=== PATIENT | female | born 1970 | race Caucasian/White ===

== ENCOUNTER 2016-12-10 13:32 | Emergency (ER) | payer OTHER ==
--- NOTE | ~2016-12-10 | CT2 ---
[facility] A Service of [facility] RADIOLOGY TEXT RESULTS PATIENT: CLEM CONWAY LOCATION: SED : [birth year] UNIT #: [id number] AGE: [address]: Brad Fitch MD SEX: F ORDER DR: [id number] [place] [address] [id number] MR#: [id number] Acc #: [id number] NAME: CLEM CONWAY : 1970 SEX: F STUDY DATE/TIME: 12/10/2016 15:13 UNIT: SED ROOM: STUDY DESCRIPTION: CT Abd and Pelv W Cont Attending Physician: Brad Fitch M.D. Ordering Physician: Brad Fitch M.D. Primary Care Physician: Francisco Mallory M.D. MEDICAL IMAGING REPORT This report is preliminary unless electronic signature is present. EXAM Abdomen and pelvis CT, with contrast, 12/10/2016. INDICATIONS 46-year-old female with right lower quadrant abdominal pain and vomiting since 6:30 this morning. Nausea. History of hysterectomy and cholecystectomy. No history of malignancy. TECHNIQUE Contrast-enhanced abdomen and pelvis CT was performed. Comparison 06/05/09. This CT exam was performed with one or more of the following radiation dose reduction techniques: automatic exposure control, adjustment of mA and/or kV according to patient size, and iterative reconstruction. FINDINGS CT ABDOMEN: Included lung bases are clear. No effusion or pericardial effusion. Aorta demonstrates no aneurysm or dissection. Spleen, adrenal glands and pancreas are unremarkable. The gallbladder is surgically absent. Liver demonstrates equivocal mild fatty infiltration. Kidneys demonstrate no hydronephrosis or inflammatory change. Reactive-appearing upper abdominal lymph nodes and periportal nodes. CT PELVIS: Bladder demonstrates prolapse into the deep pelvis. Uterus surgically absent. There is no drainable fluid collection in the pelvis or adnexal mass. Bowel demonstrates no inflammatory change or obstruction. Appendix is normal. Inguinal canals are unremarkable. No suspicious bone lesion. [facility] A Service of [facility] RADIOLOGY TEXT RESULTS PATIENT: CLEM CONWAY LOCATION: SED : [birth year] UNIT #: [id number] AGE: [address]: Brad Fitch MD SEX: F ORDER DR: IMPRESSION 1. No clearly acute process in the abdomen or pelvis. The appendix is normal. No bowel obstruction, drainable fluid collection or focal area of inflammatory change. Appendix normal. 2. Surgical absence of the gallbladder. 3. Surgical absence of the uterus. Dictated by... Juventino Lind M.D. THIS IS AN ELECTRONICALLY VERIFIED REPORT Juventino Lind M.D. at 12/11/2016 8:24 AM [place]qu[place] TD: 12/10/2016 18:45 JOB #: [id number] MEDICAL IMAGING REPORT Page 1 of 1
[~2016-12-10 13:32] MED LIST: ACETAMINOPHEN PO; ACETAMINOPHEN650 M3 PO; ALBUTEROL17 GM INH; AMBIEN10 MG PO; AMLODIPINE BES2.5 MG PO; ASPIRIN PO; ASPIRIN325 M1 PO; ASPIRIN81 M1 PO; ASPIRINEC; ATIVAN PO; ATIVAN2 MG PO; BACLOFEN10 MG PO; BACTRIM DS TABL1 TA1 PO; BENADRYL PO; BUMEX PO; BUMEX2 MG PO; CELEBREX PO; CELEXA; CHANTIX PO; CLOPIDOGREL75 MG PO; COLACE PO; COMBIVENT INH14.7 GM INH; COREG; COREG PO; CYMBALTA PO; DARVOCET-N 1001 TAB; DARVOCET-N 1001 TAB PO; DESYREL300 MG PO; DIAZEPAM; DICLOFENAC SODI50 MG PO; DICYCLOMINE HCL20 MG PO; EFFEXOR XR PO; FLAGYL PO; FLEXERIL; FLEXERIL PO; FLEXERIL10 MG PO; FLOVENT HFA12 GM INH; GABAPENTIN600 MG PO; HCTZ; HCTZ PO; HYDROCODON-ACE1 EAC4 PO; HYDROCODON-ACE1 EAC5 PO; HYDROCODON-ACE1 EAC9 PO; HYDROCODONE-APA1 T30 PO; IBUPROFEN; IBUPROFEN800 MG PO; IMDUR-ER30 MG PO; IMITREX PO; INDOCIN SR75 MG; K-DUR20 ME1 PO; KCL PO; KEFLEX500 MG PO; KETOPROFEN PO; LASIX PO; LEVAQUIN PO; LIPITOR; LIPITOR PO; LISINOPRIL; LISINOPRIL PO; LISINOPRIL20 MG PO; LOPRESSOR; LOPRESSOR PO; LYRICA PO; MEDROL PO; MEDROL4 MG/DOSE- PO; METOPROLOL SUCC50 MG PO; MOBIC PO; MS CONTIN PO; NAPROXEN500 M1 PO; NEURONTIN; NEURONTIN PO; NEURONTIN300 MG PO; NEURONTIN600 MG PO; NICOTINE T1 PATCH .2 TOP; NITROGYLCERIN; NITROGYLCERIN SUBLINGUAL; NITROSTAT0.4 MG SL; NORVASC PO; PARAFON FORTE500 MG PO; PATIENT'S PHARMACY; PATIENT'S PHARMACY PO; PERCOCET5/325 PO; PHENERGAN PO; PHENERGAN PR; PLAVIX; PLAVIX PO; PREDNISONE PO; PREDNISONE5 M1 PO; PREDNISONE50 MG PO; PRILOSEC PO; REGLAN PO; ROBAXIN500 MG PO; SEROQUEL PO; SIMVASTATIN20 MG PO; THEOPHYLLIN PO; TOPROL XL PO; TRAZODONE; TRAZODONE PO; TRICOR PO; TYLENOL #3 PO; VICODIN 5/500 T1 TAB PO; VICODIN PO; ZANAFLEX PO; ZANAFLEX4 M1 PO; ZANTAC PO; ZITHROMAX PO; ZOCOR PO; ZOLOFT PO
[2016-12-10] MEDS ORDERED: NEURONTIN800 MG PO (13:37)
[2016-12-10] MEDS ORDERED: LISINOPRIL20 MG PO (13:37)
[2016-12-10 14:49] LABS: BASOPHIL# 0.1 X10e3 (0-0.3); BASOPHIL% 0.8 % (0-2.5); EOSINOPHIL# 0.2 X10e3 (0-0.7); EOSINOPHIL% 2.1 % (0.0-7.0); HEMATOCRIT 43.6 % (35.0-45.0); HEMOGLOBIN 14.8 gm/dL (12.0-16.0); LYMPHOCYTE# 2.6 X10e3 (1.0-3.5); LYMPHOCYTE% 25.2 % (17.0-45.0); MEAN CELL VOLUME 89.4 FL (83-96); MEAN CORPUSCULAR HEMOGLOBIN 30.2 PG (28-34); MEAN CORPUSCULAR HGB CONC 33.8 g/dL (30-36); MEAN PLATELET VOLUME 8.8 FL (6.5-11.5); MONOCYTE# 0.5 X10e3 (0-1.0); MONOCYTE% 4.7 % (3.0-12.0); NEUTROPHIL% 67.2 % (40-75); PLATELET COUNT 171 X10e3 (140-420); RED BLOOD COUNT 4.88 X10e (3.90-5.30); RED CELL DISTRIBUTION WIDTH 15.1 % (11.0-15.5); WHITE BLOOD COUNT 10.5 X10e3 (4.0-10.5)
[2016-12-10 14:53] LABS: URINE SOURCE CLEAN CATCH
[2016-12-10 14:55] LABS: URINE APPEARANCE CLEAR; URINE BILIRUBIN NEG (NEG); URINE BLOOD NEG (NEG); URINE COLOR YELLOW; URINE GLUCOSE NEG (NORM); URINE KETONE NEG (NEG); URINE LEUKOCYTE ESTERASE NEG (NEG); URINE NITRATE NEG (NEG); URINE PROTEIN NEG (NEG); URINE UROBILINOGEN 0.2 MG/DL (NORM)
[2016-12-10 15:00] LABS: DIFF IND NO; MICRO INDICATED? NO
[2016-12-10 15:09] LABS: ALBUMIN SERUM 3.9 g/dL (3.5-5.0); ALKALINE PHOSPHATASE 62 U/L (32-92); ALT (SGPT) 15 U/L (10-40); AMYLASE <7 U/L (0-46); AST (SGOT) 16 U/L (10-42); BILIRUBIN, DIRECT 0.1 mg/dL (0.0-0.2); BILIRUBIN,TOTAL 0.1 mg/dL (0.2-2.0); BLOOD UREA NITROGEN 10 mg/dL (9-23); BUN/CREATININE RATIO 16.66; CALCIUM SERUM 8.6 mg/dL (8.4-10.2); CARBON DIOXIDE 27 mmol/L (22-31); CHLORIDE 104 mmol/L (100-111); CREATININE SERUM 0.6 mg/dL (0.6-1.4); GLOM FILT RATE Estimated 110.1 mL/min (>60); GLUCOSE FASTING 100 mg/dL (70-110); LIPASE 25 U/L (22-51); POTASSIUM 3.8 mmol/L (3.5-5.1); PROTEIN TOTAL SERUM 7.5 g/dL (6.0-8.3); SODIUM 138 mmol/L (135-145)
== END 2016-12-10 16:28 | disposition home or self-care (01) ==
LOC: SED 13:32
PROVIDERS: Emergency Medicine
DX: K52.9 Noninfective gastroenteritis and colitis, unspecified (principal); I25.2 Old myocardial infarction; E78.5 Hyperlipidemia, unspecified; I10 Essential (primary) hypertension; J44.9 Chronic obstructive pulmonary disease, unspecified; E66.9 Obesity, unspecified; F17.210 Nicotine dependence, cigarettes, uncomplicated; Z79.899 Other long term (current) drug therapy; Z88.5 Allergy status to narcotic agent; Z88.1 Allergy status to other antibiotic agents; Z91.040 Latex allergy status
CPT/HCPCS: 36415; 74177; 80048; 80076; 81003; 82150; 83690; 85025; 96361; 96374; 96375; 96376; 99284; J1170; J2405; Q9967

== ENCOUNTER 2017-03-24 21:38 | Inpatient (IN) | payer OTHER ==
[~2017-03-24] VITALS: Ht 160 cm; Wt 115.5 kg
--- NOTE | ~2017-03-24 | CR127 ---
[facility] A Service [facility] RADIOLOGY TEXT RESULTS PATIENT: CLEM CONWAY LOCATION: [place] [address] : [birth year] UNIT #: [id number] AGE: [address]: Allyssa Shah MD SEX: F ORDER DR: [id number] [place] [id number] I MR#: [id number] Acc #: [id number] NAME: CLEM CONWAY : 1970 SEX: F STUDY DATE/TIME: 03/25/2017 1:25 UNIT: SEDOF ROOM: [facility] STUDY DESCRIPTION: CR Foot Complete Min 3 View Rt Attending Physician: Chung Matute M.D. Ordering Physician: Ofe Collins M.D. Primary Care Physician: Francisco Mallory M.D. MEDICAL IMAGING REPORT This report is preliminary unless electronic signature is present. EXAM Right foot series INDICATION Right foot redness and swelling for the past 2 days. PROCEDURE Three views of the right foot. COMPARISON None. FINDINGS Soft tissue thickening and soft tissue gas is seen lateral to the fifth metatarsophalangeal joint. No underlying aggressive appearing bone change. IMPRESSION 1. Focal soft tissue swelling and gas lateral to the fifth metatarsophalangeal joint. 2. No aggressive appearing bone change is seen to suggest osteomyelitis on plain film. Dictated by... Saul Sinclair M.D. THIS IS AN ELECTRONICALLY VERIFIED REPORT Saul Sinclair M.D. at 03/26/2017 9:55 PM EEClifton/domingo TD: 03/25/2017 10:26 JOB #: [id number] [facility] A Service [facility] RADIOLOGY TEXT RESULTS PATIENT: CLEM CONWAY LOCATION: [place] [address] : [birth year] UNIT #: [id number] AGE: [address]: Allyssa Shah MD SEX: F ORDER DR: MEDICAL IMAGING REPORT Page 1 of 1
--- NOTE | ~2017-03-24 | CO ---
Unit #: [id number] #: [id number] Patient: CLEM CONWAY [id number] [address] [place], [place] [address] [id number] I MR#: [id number] NAME: CLEM CONWAY ROOM: 461 Age: 46 Sex: F Admission Date: 03/25/2017 : 1970 Attending Physician: Allyssa Shah M.D. Primary Care Physician: Francisco Mallory M.D. Consultation Date: 03/25/2017 CONSULTATION REPORT BRIEF HISTORY The patient is a 46-year-old lady, who presents with a 1-week history of pain in her right foot. This is subsequently become red, swollen, and an area of blistering on the lateral aspect. She has had some subjective fevers. PAST MEDICAL HISTORY Congestive heart failure, cardiac dysfunction, hypertension, neuropathy, COPD. PAST SURGICAL HISTORY She has had a hysterectomy, cholecystectomy, multiple exploratory laparotomies, section, and cardiac stents. HOME MEDICATIONS Plavix, Flexeril, Celebrex, lisinopril. SOCIAL HISTORY No alcohol. Does smoke pack per day. FAMILY HISTORY Negative for GI malignancy. REVIEW OF SYSTEMS No cardiopulmonary complaints at this time. Else, 10 systems reviewed negative. PHYSICAL EXAMINATION GENERAL: She is awake and alert, but uncomfortable. Complaining of foot pain. VITAL SIGNS: Currently, afebrile. HEENT: Unremarkable. NECK: Supple. No JVD. Trachea midline. LUNGS: Clear to auscultation. Bilateral breath sounds symmetric. CARDIOVASCULAR: Regular rate and rhythm. ABDOMEN: Soft, nontender, and nondistended. I palpate no masses. No hepatosplenomegaly. EXTREMITIES: Shows erythema in the right forefoot and lateral aspect up to the ankle. There is necrotic bulla measuring 3 cm in diameter over the lateral aspect of the distal foot. This is tender to palpation. She has palpable dorsalis pedis pulse. ASSESSMENT Cellulitis with abscess of the foot. Unit #: [id number] #: [id number] Patient: CLEM CONWAY PLAN Recommend IV antibiotics as written. We will plan for surgical debridement. Discussed in detail. Dictated by... Micah Snider M.D. LIZBETH/laura TD: 03/25/2017 20:44 JOB #: [id number] CONSULTATION REPORT Page 1 of 1 X Micah Snider MD CONSULTATION REPORT
--- NOTE | ~2017-03-24 | DS ---
Unit #: [id number] #: [id number] Patient: TABITHA POTTER [id number] [address] [place], [place] [address] [id number] I MR#: [id number] NAME: TABITHA POTTER ROOM: 461 Age: 46 Sex: F Admission Date: 03/25/2017 : 1970 Discharge Date: 03/26/2017 Attending Physician: Allyssa Shah M.D. Primary Care Physician: Francisco Mallory M.D. DISCHARGE SUMMARY FINAL DIAGNOSES 1. Right foot necrotizing abscess, status post I and D. 2. History of methicillin-resistant staphylococcus aureus in the past, but the patient's wound culture is pending at this time. 3. Hypertension. 4. History of coronary artery disease. 5. Hyperlipidemia. 6. Chronic obstructive pulmonary disease. 7. Tobacco abuse. 8. Chronic back pain. DISCHARGE MEDICATIONS Zyvox 600 mg b.i.d., [place] 10/325 one tablet b.i.d. for pain, Dakin's solution 1/4th strength for the dressing b.i.d., Flexeril 10 mg t.i.d., Celebrex 200 mg daily, Plavix 75 mg daily, Zestril 20 mg daily, Tylenol 650 q.4 p.r.n., amitriptyline continue home dose, Desyrel 300 mg at bedtime. CONSULTATION DURING HOSPITALIZATION Dr. Harper from [facility]. ADMITTING PHYSICIAN Dr. Schreiber. CONSULTING PHYSICIAN Dr. Allyssa Shah. DIAGNOSTIC STUDIES LABORATORY RESULTS: On discharge; hemoglobin A1c 5.6. Sodium 138, potassium 4.7, chloride 103, BUN 8, creatinine 0.8. WBC 13.2, hemoglobin 12.6, hematocrit 38.7, and platelet count of 210. HOSPITAL COURSE Ms. Tabitha Potter is a 46-year-old female, who is a patient of Dr. Mallory, developed right foot swelling and redness, developed a lesion on the right foot about 2 to 3 days ago which was gradually getting worse. The patient was admitted to [facility]. LSA was consulted. The patient had I and D and debridement done. The patient has been advised to continue dressing. The patient wants to go home and it has been conformed with Surgery. The patient will be discharged home on above medications. Wound culture is still pending. Because the patient has history of MRSA in the past, the patient is being prescribed Zyvox. Pain medications are being given by LSA. Unit #: [id number] #: [id number] Patient: TABITHA POTTER PHYSICAL EXAMINATION ON DISCHARGE VITAL SIGNS: Blood pressure is 121/54, respiratory rate 20, pulse 71, temperature 98.3, oxygen saturation is 97%. HEAD: Normocephalic. CHEST: Fair air entry. CVS: Regular rhythm. EXTREMITIES: Dressing is present on the right foot. DISCHARGE INSTRUCTIONS 1. The patient is being discharged home in stable condition. 2. Care tender to eval and treat for wound care. 3. Medication as per med rec. 4. Follow up with primary care provider in 1 week. 5. Follow up with surgeon in 1 week, #[id number]. 6. The patient's daughter is aware of and knows the instruction of dressing change. Dictated by... Allyssa Shah M.D. ABNER/laura TD: 03/30/2017 10:33 JOB #: [id number] DISCHARGE SUMMARY Page 1 of 1 X Allyssa Shah MD X DISCHARGE SUMMARY
--- NOTE | ~2017-03-24 | HP ---
Unit #: [id number] #: [id number] Patient: TABITHA POTTER [id number] [address] [address] [id number] I MR#: [id number] NAME: TABITHA OPTTER ROOM: 461 Age: 46 Sex: F Admission Date: 03/25/2017 : 1970 Attending Physician: Allyssa Shah M.D. Primary Care Physician: Francisco Mallory M.D. HISTORY AND PHYSICAL ADMISSION DIAGNOSES 1. Right foot necrotizing abscess. 2. Hypertension. 3. History of coronary artery disease. 4. Dyslipidemia. 5. Chronic back pain. 6. Chronic obstructive pulmonary disease. 7. Continued tobacco use. HISTORY OF PRESENT ILLNESS Ms. Tabitha Potter is a 46-year-old female, patient of Dr. Mallory, who was apparently seen at the [facility] ER secondary to right foot swelling and redness. She tells me that she developed this lesion on the right foot about two or three days ago and gradually got worse with increased swelling. She was transferred here from the [facility] ER, evaluated by LSA, and underwent I and D with debridement. Currently, she has a clean dressing over it, and she is being treated with IV antibiotics. She denies any other issues. Denies any fever, chills, nausea, vomiting, diarrhea, headache, dizziness, syncope, or chest pain. So a 12-point review of systems on this patient basically is negative except as above. PAST MEDICAL HISTORY 1. Coronary artery disease. 2. Hypertension. 3. Dyslipidemia. 4. Chronic back pain. 5. COPD. PAST SURGICAL HISTORY 1. PCI with stents to RCA and LAD. 2. Cholecystectomy. 3. Tubal ligation. 4. Total abdominal hysterectomy. 5. Laparoscopies for endometriosis. HOME MEDICATIONS 1. Plavix. 2. Desyrel. 3. Flexeril. 4. Celebrex. 5. Lisinopril. 6. Amitriptyline. Unit #: [id number] #: [id number] Patient: TABITHA POTTER ALLERGIES Morphine, amoxicillin, and latex. SOCIAL HISTORY She continues to smoke. Denies any alcohol or illicit drugs. FAMILY HISTORY Unremarkable. PHYSICAL EXAMINATION GENERAL: Patient is a 46-year-old female in no acute distress. VITAL SIGNS: Blood pressure 124/59, heart rate 75, respirations 18, temperature 98. HEENT: Head is atraumatic. Pupils equal, round, and reactive to light and accommodation. Extraocular muscles intact. Oropharynx clear. NECK: Supple. No mass, no JVD, and no bruits. CHEST: Diminished at the bases with very mild wheezing. CARDIOVASCULAR: S1 and S2. No murmurs. ABDOMEN: Soft, nontender, nondistended. LOWER EXTREMITIES: Without any cyanosis, clubbing, or edema. NEUROLOGIC: Grossly intact with no focal deficits. DIAGNOSTIC STUDIES LABORATORY: Chemistry from yesterday was significant for potassium of 3.1, sodium 132, blood glucose 132. PT-INR 14 and 1.2. White count 11.9 and hemoglobin and hematocrit 13.1 and 38.5. ASSESSMENT AND PLAN 1. Right foot necrotizing abscess, status post I and D and debridement. Continue IV Rocephin per Surgery. Continue local wound care. 2. Hypertension. Continue home medications. 3. History of coronary artery disease. Continue Plavix. 4. History of dyslipidemia, not on anything at this point. Check lipid panel. 5. Chronic pain, currently on Roxicodone and Dilaudid p.r.n. 6. Chronic obstructive pulmonary disease. Will put on DuoNebs p.r.n. 7. Tobacco use. Counseled on importance of quitting. 8. Gastrointestinal and deep venous thrombosis prophylaxis. Continue Lovenox. Started on Pepcid. 1. Dictated by Wally Schreiber M.D. OC/am TD: 03/25/2017 19:56 JOB #: [id number] Unit #: [id number] #: [id number] Patient: TABITHA POTTER HISTORY AND PHYSICAL Page 1 of 1 X Wally Schreiber MD HISTORY AND PHYSICAL
--- NOTE | ~2017-03-24 | BMI ---
[facility] Nutrition Therapy DATE: 03/25/17 Patient: CLEM CONWAY Physician: HARDY Address: [address] [place] [address] Room/Bed: [address] [place] [address], Zip: [place] [address] Admit Date: 03/25/17 Date of : [birth year] Height: 5 3 Weight: 254 115.5 HIGH BMI NOTE: Admitting DX: Pt is a 46 y/o female admitted with cellulitis. ANTHROPOMETRICS: HT:63" WT:245# BMI:43.4 IBW:115# %IBW:213% DIET: NPO RECOMMENDATIONS: Once medically feasible, advance diet to to promote gradual weight loss towards a healthy BMI. Respectfully, Tayla Barber, MS, RD, LD [facility]. Certified Medication Technician [facility] cc: client file
--- NOTE | ~2017-03-24 | OR ---
Unit #: [id number] #: [id number] Patient: CLEM CONWAY [id number] [address] [address] [id number] MR#: [id number] NAME: CLEM CONWAY ROOM: 461 Date of Procedure: 03/25/2017 Admission Date: 03/25/2017 Surgeon: Ervin Cox M.D. : 1970 Attending Physician: Allyssa Shah M.D. Primary Care Physician: Francisco Mallory M.D. OPERATIVE REPORT PREOPERATIVE DIAGNOSIS Necrotic abscess lateral aspect, right foot. POSTOPERATIVE DIAGNOSIS Necrotic abscess lateral aspect, right foot. PROCEDURE PERFORMED Incision and drainage abscess lateral aspect of the right foot with sharp excisional debridement of skin, subcutaneous tissue, and muscle. ANESTHESIA General LMA anesthesia with 0.5% Marcaine plain local anesthesia. FINDINGS The patient had a necrotic abscess of the lateral aspect of the right foot in the area of the right fifth metatarsal head. This overlying skin was necrotic. Skin and subcutaneous tissues were sharply debrided as well as some necrotic underlying muscle and tendon. FLUIDS 500 mL of crystalloid. ESTIMATED BLOOD LOSS Minimal. DRAINS None. TUBES None. SPECIMENS Sent to microbiology. COMPLICATIONS None apparent. CONDITION The patient tolerated the procedure well. INDICATIONS FOR PROCEDURE The patient is a 46-year-old white female, who developed a blister on the Unit #: [id number] #: [id number] Patient: CLEM CONWAY lateral aspect of her right foot several days ago. It became much she developed erythema, induration, and the blister enlarged. She presents at this time for sharp excisional debridement, incision and drainage. DESCRIPTION OF PROCEDURE After obtaining informed consent as well as receiving scheduled antibiotics, the patient was brought to the operating room and after adequate general LMA anesthesia was obtained, had her right foot prepped and draped in a sterile fashion. The abscess cavity was entered. Cultures were sent. The overlying necrotic skin and subcutaneous tissue were sharply debrided with a scalpel and then Metzenbaum scissors. Underlying necrotic tissue were sharply debrided that being some muscle and some tendon. There was good viable tissue left. All areas were drained. The wound was irrigated. Hemostasis was obtained with the Bovie, infiltrated with 0.5% Marcaine plain local anesthesia. A saline soaked fluff was placed as well as a dry dressing and a Kerlix wrap. Needle counts, sponge counts, and instrument counts were all correct as reported by the scrub nurse x2. The patient went from the operating room to the recovery room in stable condition. Dictated by... Gagan Santiago/laura TD: 03/26/2017 13:32 JOB #: [id number] CC: Chung Matute M.D. [facility] OPERATIVE REPORT Page 1 of 1 X Ervin Cox MD X PROCEDURE OPERATIVE NOTE
--- NOTE | ~2017-03-24 | EKG ---
PATIENT: CLEM CONWAY UNIT #: [id number] Ventricular Rate: 76 BPM Atrial Rate: 76 BPM P-R Interval: 134 ms QRS Duration: 106 ms Q-T Interval: 434 ms QTC Calculation(Bezet): 488 ms P [place]: -25 degrees Calculated R [place]: 11 degrees Calculated T [place]: 24 degrees Diagnosis Line: Normal sinus rhythm Diagnosis Line: Nonspecific T wave abnormality Diagnosis Line: Prolonged QT Diagnosis Line: Abnormal ECG Diagnosis Line: When compared with ECG of 28-MAY-2012 06:27, Diagnosis Line: Questionable change in QRS axis Diagnosis Line: Confirmed by OSMAR ARANGO MD ([id number]) on Diagnosis Line: 03/27/2017 10:41:50 AM INTERPRETING MD: NBA WOLFE
[~2017-03-24 21:38] MED LIST changes: +NEURONTIN800 MG PO
[2017-03-25 00:30] LABS: BASOPHIL# 0.1 X10e3 (0-0.3); BASOPHIL% 0.5 % (0-2.5); EOSINOPHIL# 0.2 X10e3 (0-0.7); EOSINOPHIL% 1.9 % (0.0-7.0); HEMATOCRIT 38.5 % (35.0-45.0); HEMOGLOBIN 13.1 gm/dL (12.0-16.0); LYMPHOCYTE# 1.7 X10e3 (1.0-3.5); LYMPHOCYTE% 14.4 % (17.0-45.0); MEAN CELL VOLUME 88.1 FL (83-96); MEAN CORPUSCULAR HEMOGLOBIN 29.9 PG (28-34); MEAN CORPUSCULAR HGB CONC 33.9 g/dL (30-36); MEAN PLATELET VOLUME 8.7 FL (6.5-11.5); MONOCYTE# 0.6 X10e3 (0-1.0); NEUTROPHIL# 9.3 X10e3 (1.5-7.1); NEUTROPHIL% 78.2 % (40-75); PLATELET COUNT 184 X10e3 (140-420); RED BLOOD COUNT 4.37 X10e (3.90-5.30); WHITE BLOOD COUNT 11.9 X10e3 (4.0-10.5)
[2017-03-25 00:31] LABS: DIFF IND NO
[2017-03-25 00:32] LABS: INR 1.2
[2017-03-25 00:40] LABS: ALBUMIN SERUM 3.6 g/dL (3.5-5.0); BILIRUBIN, DIRECT 0.2 mg/dL (0.0-0.2); BILIRUBIN,INDIRECT 0.5 mg/dL (0.0-0.9); BILIRUBIN,TOTAL 0.7 mg/dL (0.2-2.0); CALCIUM SERUM 8.3 mg/dL (8.4-10.2); CREATININE SERUM 0.5 mg/dL (0.6-1.4); GLOM FILT RATE Estimated 116.9 mL/min (>60); PARTIAL THROMBOPLASTIN TIME 23.9 SECONDS (25.6-38.1); POTASSIUM 3.1 mmol/L (3.5-5.1); PROTEIN TOTAL SERUM 7.2 g/dL (6.0-8.3)
[2017-03-25 00:59] LABS: POC - TROPONIN <0.05 ng/mL (<=0.05)
[2017-03-25 01:28] LABS: POC - CKMB 1.1 ng/mL (0.0-7.9); POC - MYOGLOBIN 45.6 ng/mL (0.0-169.0); POC - TROPONIN <0.05 ng/mL (<=0.05)
[2017-03-25] MEDS ORDERED: AMITRIPTYLINE150 MG PO (05:11)
[2017-03-26 03:04] LABS: HEMATOCRIT 38.7 % (35.0-45.0); HEMOGLOBIN 12.6 gm/dL (12.0-16.0); MEAN CELL VOLUME 89.6 FL (83-96); MEAN CORPUSCULAR HEMOGLOBIN 29.1 PG (28-34); MEAN CORPUSCULAR HGB CONC 32.5 g/dL (30-36); MEAN PLATELET VOLUME 8.3 FL (6.5-11.5); RED BLOOD COUNT 4.32 X10e (3.90-5.30); RED CELL DISTRIBUTION WIDTH 15.3 % (11.0-15.5)
[2017-03-26 03:40] LABS: CALCIUM SERUM 8.3 mg/dL (8.4-10.2); CREATININE SERUM 0.8 mg/dL (0.6-1.4); GLOM FILT RATE Estimated 89.1 mL/min (>60); MAGNESIUM 2.1 mg/dL (1.6-3.0); POTASSIUM 4.7 mmol/L (3.5-5.1)
[2017-03-26] MEDS ORDERED: ZYVOX600 MG PO (11:57)
[2017-03-26] MEDS ORDERED: NORCO PO (12:02)
[2017-03-26] MEDS ORDERED: DAKIN'S MODIF1000 ML TOP (12:03)
== END 2017-03-26 12:20 | disposition home health service (06) | DRG 580 ==
LOC: SED 21:38 → C4C 03-25 02:26 → SEDOF 03-25 02:26 → SED 03-25 02:26 → SEDOF 03-25 02:26 → C4C 03-25 02:30
PROVIDERS: Emergency Medicine; Physician Assistant Medical; Surgery
PROC: 0KBV0ZZ Excision of Right Foot Muscle, Open Approach (ICD-10-PCS; principal; 2017-03-25 16:00)
DX: L02.611 Cutaneous abscess of right foot (principal); L03.115 Cellulitis of right lower limb; Z68.42 Body mass index [BMI] 45.0-49.9, adult; I10 Essential (primary) hypertension; I25.10 Atherosclerotic heart disease of native coronary artery without angina pectoris; E78.5 Hyperlipidemia, unspecified; M54.9 Dorsalgia, unspecified; G89.29 Other chronic pain; J44.9 Chronic obstructive pulmonary disease, unspecified; Z72.0 Tobacco use; Z90.710 Acquired absence of both cervix and uterus; Z98.51 Tubal ligation status; Z71.6 Tobacco abuse counseling; Z91.040 Latex allergy status; F41.9 Anxiety disorder, unspecified; F32.9 Major depressive disorder, single episode, unspecified; E66.01 Morbid (severe) obesity due to excess calories; Z86.14 Personal history of Methicillin resistant Staphylococcus aureus infection
CPT/HCPCS: 36415; 73630; 80048; 80076; 82553; 83036; 83735; 83874; 84484; 85025; 85027; 85610; 85730; 87040; 87070; 87075; 87077; 87205; 93005; 94760; 96361; 96365; 96375; 99284; 99406; J0696; J1100; J1170; J1650; J1885; J2250; J2270; J2405; J3010; J3370